=== PATIENT | male | born 1945 | race Caucasian/White ===

== ENCOUNTER 2017-03-22 17:06 | Emergency (ER) | payer OTHER ==
[~2017-03-22] VITALS: Ht 182.9 cm; Wt 96.6 kg
[2017-03-22 17:12] VITALS: TEMP 36.7; Ht 182.9 cm; Wt 96.6 kg
[2017-03-22] MEDS ORDERED: FLAX1CAP11 PO (17:43)
[2017-03-22] MEDS ORDERED: METF750T PO (17:43)
[2017-03-22] MEDS ORDERED: COEN100C11 PO (17:43)
[2017-03-22] MEDS ORDERED: ATOR-54 PO (17:43)
[2017-03-22] MEDS ORDERED: CODCAP4 PO (17:43)
[2017-03-22] MEDS ORDERED: SAW1CAP11 PO (17:43)
[2017-03-22] MEDS ORDERED: ASPI81TA28 PO (17:43)
[2017-03-22 17:50] LABS: BASO % 0.4 %; BASO ABS # 0.03 K/uL (0-0.2); COMPLETE YES; EOS % 4.2 %; HEMATOCRIT 42.3 % (42-52); IG% 0.3 %; LYMPH % 19.7 %; LYMPH ABS # 1.37 K/uL (1.2-3.4); MEAN CELL VOLUME 90.6 fL (80-100); MEAN CORPUSCULAR HEMOGLOBIN 29.6 pg (25-34); MEAN CORPUSCULAR HGB CONC 32.6 g/dl (32-36); MEAN PLATELET VOLUME 9.4 fL (7.4-10.4); MONO % 8.8 %; NEUT % 66.6 %; PLATELET COUNT 212 K/uL (130-400); RED BLOOD COUNT 4.67 M/uL (4.7-6.1); WHITE BLOOD COUNT 6.97 K/uL (4.8-10.8)
[2017-03-22 18:09] LABS: BUN/CREATININE RATIO 18.6 (10-20); CALCIUM 8.5 mg/dl (8.5-10.1); CREATININE 1.1 mg/dl (0.60-1.40); POTASSIUM 3.9 mmol/L (3.5-5.1)
[2017-03-22 18:12] LABS: ALB/GLOB RATIO 1.2 (0.9-2)
--- NOTE | 2017-03-22 18:30 | DIAGNOSTIC IMAGING REPORT ---
ULTRASOUND VENOUS DOPPLER LWR EXT BILA CLINICAL HISTORY: Bilateral lower extremity swelling. Extensive recent travel history. COMPARISON STUDY: No previous studies for comparison. FINDINGS: Real-time and color flow Doppler imaging were performed. Flow was seen within the femoral, popliteal and calf veins with no intraluminal thrombus demonstrated. The saphenous vein is patent. IMPRESSION: No evidence of lower extremity DVT. Electronically signed by: Sabas Daniel M.D. 03/22/2017 6:29 PM Dictated Date/Time: 03/22/2017 6:28 PM
[2017-03-22 19:02] VITALS: BP 138/76; PULSE 66; O2SAT 95
--- NOTE | 2017-03-22 22:27 | EMERGENCY ROOM VISIT NOTE ---
History First contact with patient: 17:20 Chief Complaint: SWELLING TO EXTREMITY Stated Complaint: SWOLLEN ANKLES History of Present Illness The patient is a 72 year old male who presents to the Emergency Room with complaints of swelling to his bilateral legs over the past few days. The patient has an extensive recent travel history. He went to the [facility], when on a hiking trip, rode a bus for greater than 8 hours, and ended up flying home. The patient does not have fever, chills, chest pain, chest tightness, shortness of breath, or dyspnea on exertion. He does not have a history of DVT or PE. The patient considers himself usually healthy. He rates his current discomfort a 2/10. Review of Systems More than 10 systems were reviewed and otherwise negative with the exception of history of present illness. Past Medical/Surgical History Dyslipidemia Family History No pertinent family history Social History Smoking Status: Former Smoker Current/Historical Medications Scheduled Aspirin (Aspirin Ec), 81 MG PO DAILY Atorvastatin (Lipitor), 10 MG PO BID Cod Liver Oil (Cod Liver Oil), 1 CAP PO DAILY Coenzyme Q10 (Ubidecarenone) (Coq-10), 1 CAP PO DAILY Flaxseed (Linseed) (Flax Seed Oil), 1 CAP PO DAILY Metformin Hcl (Glucophage Er), 750 MG PO DAILY [place] ([place]) (Saw [place]), 1 CAP PO DAILY Allergies Coded Allergies: Niacin (Verified Allergy, Intermediate, [place], 03/22/17) Physical Exam Vital Signs Date Time Temp Pulse Resp B/P Pulse Ox O2 Delivery O2 Flow Rate FiO2 03/22/17 19:02 66 18 138/76 95 03/22/17 18:55 66 18 138/76 95 Room Air 03/22/17 17:12 36.7 80 18 133/65 96 Room Air Pain Rating (0-10): 0 Physical Exam VITALS: Vitals are noted on the nurse's note and reviewed by myself. Vital signs stable. GENERAL: Well-developed, well-nourished, white male, who is in no acute distress and resting comfortably. Patient is cooperative with the examination. HEAD: Normocephalic atraumatic. HEART: Regular rate and rhythm without murmurs gallops or rubs. LUNGS: Clear to auscultation bilaterally without wheezes, rales or rhonchi. No retractions or accessory muscle use. MUSCULOSKELETAL: Mild bilateral edema is appreciated to the lower extremities. No palpable cords or evidence of cellulitis. There is a faint rash along the left medial ankle that is nonspecific. Neurovascular status is intact distally. No tenderness of the knees or hips. NEURO: Patient was alert and oriented to person place and time. CN II through XII grossly intact. Medical Decision & Procedures ER Provider Diagnostic Interpretation: ULTRASOUND VENOUS DOPPLER LWR EXT BILA CLINICAL HISTORY: Bilateral lower extremity swelling. Extensive recent travel history. COMPARISON STUDY: No previous studies for comparison. FINDINGS: Real-time and color flow Doppler imaging were performed. Flow was seen within the femoral, popliteal and calf veins with no intraluminal thrombus demonstrated. The saphenous vein is patent. IMPRESSION: No evidence of lower extremity DVT. Laboratory Results 03/22/17 17:42 Red Blood Count 4.67, Mean Corpuscular Volume 90.6, Mean Corpuscular Hemoglobin 29.6, Mean Corpuscular Hemoglobin Concent 32.6, Mean Platelet Volume 9.4, Neutrophils (%) (Auto) 66.6, Lymphocytes (%) (Auto) 19.7, Monocytes (%) (Auto) 8.8, Eosinophils (%) (Auto) 4.2, Basophils (%) (Auto) 0.4, Neutrophils # (Auto) 4.65, Lymphocytes # (Auto) 1.37, Monocytes # (Auto) 0.61, Eosinophils # (Auto) 0.29, Basophils # (Auto) 0.03 03/22/17 17:42 Test 03/22/17 17:42 White Blood Count 6.97 K/uL (4.8-10.8) Red Blood Count 4.67 M/uL (4.7-6.1) Hemoglobin 13.8 g/dL (14.0-18.0) Hematocrit 42.3 % (42-52) Mean Corpuscular Volume 90.6 fL (80-100) Mean Corpuscular Hemoglobin 29.6 pg (25-34) Mean Corpuscular Hemoglobin Concent 32.6 g/dl (32-36) Platelet Count 212 K/uL (130-400) Mean Platelet Volume 9.4 fL (7.4-10.4) Neutrophils (%) (Auto) 66.6 % Lymphocytes (%) (Auto) 19.7 % Monocytes (%) (Auto) 8.8 % Eosinophils (%) (Auto) 4.2 % Basophils (%) (Auto) 0.4 % Neutrophils # (Auto) 4.65 K/uL (1.4-6.5) Lymphocytes # (Auto) 1.37 K/uL (1.2-3.4) Monocytes # (Auto) 0.61 K/uL (0.11-0.59) Eosinophils # (Auto) 0.29 K/uL (0-0.5) Basophils # (Auto) 0.03 K/uL (0-0.2) RDW Standard Deviation 47.4 fL (36.4-46.3) RDW Coefficient of Variation 14.4 % (11.5-14.5) Immature Granulocyte % (Auto) 0.3 % Immature Granulocyte # (Auto) 0.02 K/uL (0.00-0.02) Anion Gap 7.0 mmol/L (3-11) Est Creatinine Clear Calc Drug Dose 72.1 ml/min Estimated GFR () 76.8 Estimated GFR (Non- 66.2 BUN/Creatinine Ratio 18.6 (10-20) Calcium Level 8.5 mg/dl (8.5-10.1) Total Bilirubin 0.4 mg/dl (0.2-1) Aspartate Amino Transf (AST/SGOT) 23 U/L (15-37) Alanine Aminotransferase (ALT/SGPT) 32 U/L (12-78) Alkaline Phosphatase 82 U/L (45-117) Total Protein 6.5 gm/dl (6.4-8.2) Albumin 3.6 gm/dl (3.4-5.0) Globulin 2.9 gm/dl (2.5-4.0) Albumin/Globulin Ratio 1.2 (0.9-2) ED Course Physical exam and history were performed. Nursing notes and EMR were reviewed. Patient appears to have swelling of the bilateral lower extremities after significant travel history over the past few weeks. On examination the patient does not appear toxic. He is not having chest pains or breathing difficulties. He does have a nonspecific rash to the medial left ankle. IV access was established and basic labs were obtained. Ultrasounds of the lower legs were performed. The patient's blood work is as above and was reviewed. He does not have a significant elevated white blood cell count, gross anemia, bandemia, or significant electrolyte imbalance. Platelet count is normal. Ultrasound is as above and does not show evidence of acute process. Overall the patient appears stable for discharge home. I suspect much of his symptoms are related to dependent edema from travel, and not necessarily a cardiovascular process. The patient was asked to follow with his primary care physician in the next few days for recheck. He was otherwise invited back to the ER with any new, worsening, or concerning symptoms. The chart was completed utilizing [employer] Speech Voice Recognition Software. Grammatical errors, random word insertions, pronoun errors, and incomplete sentences are an occasional consequence of this system due to software limitations, ambient noise, and hardware issues. Any formal questions or concerns about the content, text, or information contained within the body of this dictation should be directly addressed to the provider for clarification. . Medical Decision Differential diagnosis: Etiologies such as DVT, musculoskeletal, infection, joint effusion, trauma, lymphedema, idiopathic, CHF, as well as others were entertained.. Impression Primary Impression: Swelling of lower extremity Departure Information Dispostion Home / Self-Care Condition GOOD Forms HOME CARE DOCUMENTATION FORM, IMPORTANT VISIT INFORMATION Patient Instructions My [facility] Additional Instructions You were seen and evaluated today on an emergency basis only. This is not a substitute for, or an effort to provide, complete comprehensive medical care. It is not possible to recognize and treat all injuries or illnesses in a single emergency department visit. For this reason it is recommended that you followup with your primary care physician this week for ongoing care and evaluation. You are welcome to return to the emergency department anytime with new, worsening, or concerning symptoms.
== END 2017-03-22 19:02 | disposition home or self-care (01) ==
LOC: C.EDB 17:08 → C.EDD 19:02
DX: R22.43 Localized swelling, mass and lump, lower limb, bilateral (principal); E78.5 Hyperlipidemia, unspecified; Z87.891 Personal history of nicotine dependence; Z79.82 Long term (current) use of aspirin; Z79.899 Other long term (current) drug therapy